=== PATIENT | female | born 1940 | race African-American/Black ===

== ENCOUNTER 2018-01-12 16:50 | Inpatient (IN) | payer OTHER ==
--- NOTE | 2018-01-12 18:26 | PDOC ---
History of Present Illness <Buzz Prieto - Last Filed: 01/12/18 18:26> - General History Source: Patient, Spouse Exam Limitations: No Limitations - History of Present Illness Initial Comments: 01/12/18 20:33 The patient is a 77 year old female who presents to the emergency department s/ p a probable syncopal event. The patient reports that after walking up a hill today she became lightheaded and dizzy. She assumes that she ultimately lost consciousness, because she states that she awoke to find herself seated on the bench next to where she was standing and found her pocketbook on the ground. The patient states she immediately called her and was transported here. The patients last meal was a burger with fries, and 2 glasses of water earlier in the day. She endorses nausea and diaphoresis. Denies vomiting. Of note, she states that she recently required a blood transfusion for internal bleeding and was admitted for 4 days for which she never followed up. She has not seen a doctor since then. The patient notes that she had one episode of passing out at a concert when she was a teenager. PAST MEDICAL HISTORY: Denies history of heart disease or blood clots. PAST SURGICAL HISTORY: no significant history FAMILY HISTORY: no pertinent history MEDICATIONS: reviewed ALLERGIES: As per nursing notes Review of Systems: General: (+) Weakness. No fevers or chills, no weakness, no weight loss HEENT: No change in vision. No sore throat,. No ear pain CardioVascular: No chest pain or shortness of breath Respiratory: No cough, or wheezing. Gastrointestinal: (+) Nausea. vomiting, diarrhea or constipation, No rectal bleeding Genitourinary: No dysuria, hematuria, or frequency Musculoskeletal: No joint or muscle pain or swelling Neurologic: (+) Loss of consciousness. (+) Dizziness. No headache, vertigo Skin: No rashes or easy bruising All other systems reviewed and normal Physical Exam: GENERAL: Obese. The patient is awake, alert, and fully oriented, in no acute distress. HEAD: Normal with no signs of trauma. EYES: Pupils equal, round and reactive to light, extraocular movements intact, sclera anicteric, conjunctiva clear. ABDOMEN: (+) Mild tenderness to palpation of the epigastric area. Soft, nondistended, normal bowel sounds. No guarding. No rebound CARDIOVASCULAR: (+) Soft systolic murmur in left upper chest. No radiation. RESPIRATORY: Lungs clear to auscultation bilaterally. EXTREMITIES: Normal range of motion. LLE: (+) None-pitting edema. (+) Tenderness to palpation of calf and medial aspect of thigh. NEUROLOGICAL: (+) Patient had difficulty recalling her medical history. Her son had to fill in missing information that the patient has appeared to have forgotten. Normal speech, normal gait. PSYCH: Normal mood, normal affect. SKIN: Warm, Dry, normal turgor, no rashes or lesions noted. <Crystal Gonzales - Last Filed: 01/12/18 20:38> - General History Source: Patient, Family Exam Limitations: Dementia - History of Present Illness Initial Comments: 01/12/18 21:20 A portion of this note was documented by scribe services under my direction. I have reviewed the details of the note, within reason, and agree with the documentation. The case summary and management plan written by me. Assessment and plan: This is a 77-year-old female who comes in status post syncope events. Patient has poor recall of her medical history however most of that was filled in by her son. Patient does not have a primary care physician does not follow-up with any physician and does not take any medications. However post working patient up it is apparent that she has hypertension that is uncontrolled and untreated, most likely early type 2 diabetes, some mild renal insufficiency, and anemia. Patient's EKG did show some anterior lateral ischemic changes with flipped T's some of which are old from a prior EKG. Patient will be placed in observation telemetry bed for her syncope and to rule her out for cardiac <Bernadine Azevedo I - Last Filed: 01/12/18 21:23> - General Chief Complaint: Weakness Stated Complaint: WEAKNESS AFTER EATING OUT Time Seen by Provider: 01/12/18 16:56 Past History - Past Medical History COPD: No Other medical history: DENIES - Suicide/Smoking/Psychosocial Hx Smoking History: Never smoked Have you smoked in the past 12 months: No Information on smoking cessation initiated: Yes Hx Alcohol Use: No Drug/Substance Use Hx: No Substance Use Type: None <Buzz Prieto - Last Filed: 01/12/18 18:26> <Crystal Gonzales - Last Filed: 01/12/18 20:38> <Bernadine Azevedo I - Last Filed: 01/12/18 21:23> - Past Medical History Allergies/Adverse Reactions: Allergies Allergy/AdvReac Type Severity Reaction Status Date / Time Penicillins Allergy Intermediate Rash Verified 01/12/18 18:35 aspirin Allergy Unknown Verified 01/12/18 18:34 Home Medications: Ambulatory Orders NK [No Known Home Medication] 01/12/18 *Physical Exam - Vital Signs Last Vital Signs Temp Pulse Resp BP Pulse Ox 98 F 76 20 196/95 98 01/12/18 16:52 01/12/18 18:00 01/12/18 18:00 01/12/18 18:00 01/12/18 18:00 <Buzz Prieto - Last Filed: 01/12/18 18:26> - Vital Signs Last Vital Signs Temp Pulse Resp BP Pulse Ox 98.6 F 79 14 168/90 100 01/12/18 19:33 01/12/18 19:33 01/12/18 19:33 01/12/18 19:33 01/12/18 19:33 <Crystal Gonzales - Last Filed: 01/12/18 20:38> - Vital Signs Last Vital Signs Temp Pulse Resp BP Pulse Ox 98.6 F 79 14 168/90 99 01/12/18 19:33 01/12/18 19:33 01/12/18 19:33 01/12/18 19:33 01/12/18 20:11 <Bernadine Azevedo I - Last Filed: 01/12/18 21:23> ED Treatment Course - LABORATORY CBC & Chemistry Diagram: 01/12/18 18:35 01/12/18 18:35 - ADDITIONAL ORDERS Additional order review: Laboratory Results 01/12/18 01/12/18 01/12/18 18:35 18:35 18:35 PT with INR 11.9 INR 1.06 Sodium 135 L Potassium 4.8 Chloride 99 Carbon Dioxide 26 Anion Gap 10 BUN 30 H Creatinine 1.7 H Creat Clearance w eGFR 29.07 Random Glucose 163 H Calcium 9.1 Total Bilirubin 0.7 AST 29 ALT 9 L Alkaline Phosphatase 62 Troponin I < 0.03 Total Protein 7.6 Albumin 4.1 01/12/18 18:35 RBC 3.87 MCV 80.9 MCHC 32.3 RDW 16.3 H MPV 8.7 Neutrophils % 77.7 Lymphocytes % 12.1 Monocytes % 7.7 Eosinophils % 2.4 Basophils % 0.1 - RADIOLOGY Radiograph Interpretation: 01/12/18 20:[address] was reviewed by Dr. Prieto and over-read by Radiology. Impression: Moderate atrophy. No gross evidence of a focal intracranial lesion or hemorrhage is seen. Correlate clinically to determine further evaluation and follow-up. Chest X-Ray was reviewed by Dr. Prieto and over-read by Radiology. Impression: No acute cardiopulmonary disease is present. <Crystal Gonzales - Last Filed: 01/12/18 20:38> - LABORATORY CBC & Chemistry Diagram: 01/12/18 18:35 01/12/18 18:35 - ADDITIONAL ORDERS Additional order review: Laboratory Results 01/12/18 01/12/18 07 18:35 18:35 18:35 PT with INR 11.9 INR 1.06 Sodium 135 L Potassium 4.8 Chloride 99 Carbon Dioxide 26 Anion Gap 10 BUN 30 H Creatinine 1.7 H Creat Clearance w eGFR 29.07 Random Glucose 163 H Calcium 9.1 Total Bilirubin 0.7 AST 29 ALT 9 L Alkaline Phosphatase 62 Troponin I < 0.03 Total Protein 7.6 Albumin 4.1 01/12/18 18:35 RBC 3.87 MCV 80.9 MCHC 32.3 RDW 16.3 H MPV 8.7 Neutrophils % 77.7 Lymphocytes % 12.1 Monocytes % 7.7 Eosinophils % 2.4 Basophils % 0.1 - RADIOLOGY Radiology Studies Ordered: Category Date Time Status DUPLEX VASCUL US-2LEGS [US] Stat Ultrasound 01/12/18 20:05 Taken - Medications Given in the ED: ED Medications Discontinued Medications Generic Name Dose Route Start Last Admin Trade Name Freq PRN Reason Stop Dose Admin Sodium Chloride 1,000 mls @ 1,000 mls/hr 01/12/18 19:54 01/12/18 19:56 Normal Saline - IV 01/12/18 20:53 1,000 mls/hr .Q1H ONE Administration <Bernadine Azevedo I - Last Filed: 01/12/18 21:23> *DC/Admit/Observation/Transfer <Buzz Prieto - Last Filed: 01/12/18 18:26> - Attestations Scribe Attestion: 01/12/18 20:38 Documentation prepared by Crystal Gonzales, acting as quality engineer medical device for Bernadine Azevedo MD. <Crystal Gonzales - Last Filed: 01/12/18 20:38> - Discharge Dispostion Decision to Admit order: Yes <Bernadine Azevedo I - Last Filed: 01/12/18 21:23> Diagnosis at time of Disposition: Syncope Qualifiers: Syncope type: unspecified Qualified Code(s): R55 - Syncope and collapse Hypertension Qualifiers: Hypertension type: essential hypertension Qualified Code(s): I10 - Essential ( primary) hypertension - Discharge Dispostion Condition at time of disposition: Fair
[2018-01-12 18:49] LABS: WHITE BLOOD COUNT 6.6 K/mm3 (4.0-10.8)
[2018-01-12 18:56] LABS: BASO % 0.1 % (0-2.0); EOS % 2.4 % (0-4.5); HEMATOCRIT 31.3 % (32.4-45.2); HEMOGLOBIN 10.1 GM/dl (10.7-15.3); LYMPH % 12.1 % (8-40); MCH 26.1 pg (25.7-33.7); MCHC 32.3 g/dl (32.0-36.0); MEAN CELL VOLUME 80.9 fl (80-96); MEAN PLT VOLUME 8.7 fl (7.5-11.1); MONO % 7.7 % (3.8-10.2); NEUT % 77.7 % (42.8-82.8); PLATELET COUNT 230 K/MM3 (134-434); RBC 3.87 M/mm3 (3.60-5.2); RDW 16.3 % (11.6-15.6)
[2018-01-12 19:06] LABS: INR 1.06 (0.82-1.09); PROTHROMBIN TIME (PATIENT) 11.9 SEC (10.2-13.0)
[2018-01-12 19:15] LABS: ALBUMIN 4.1 g/dl (3.5-5.0); ALK PHOS 62 U/L (32-92); ANION GAP 10 (8-16); BILIRUBIN,TOTAL 0.7 mg/dl (0.2-1.0); BLOOD UREA NITROGEN 30 mg/dl (7-18); CALCIUM 9.1 mg/dl (8.4-10.2); CHLORIDE 99 mmol/L (98-107); CO2 26 mmol/L (22-28); CREATININE 1.7 mg/dl (0.6-1.3); POTASSIUM 4.8 mmol/L (3.5-5.1); SGOT/AST 29 U/L (10-42); SGPT/ALT 9 U/L (10-40); SODIUM 135 mmol/L (136-145); TOT PROT 7.6 g/dl (6.4-8.3)
[2018-01-12 19:23] LABS: GLUCOSE,RANDOM 163 mg/dl (74-106)
[2018-01-12] MEDS ORDERED: SODIUM CHLORIDE 1,000 ML IV ONE (19:54)
[2018-01-12 23:22] VITALS: BMI 36.7
[2018-01-12] MEDS: HEPARIN NA (PORCINE) 5,000 UNITS/ML 1ML VIAL SQ SCH ×2 (23:29→23:36)
[2018-01-12] MEDS: INSULIN SLIDING SCALE (NOVOLOG) 1 VIAL SQ SCH (23:35)
[2018-01-13] MEDS: INSULIN SLIDING SCALE (NOVOLOG) 1 VIAL SQ SCH ×5 (01:00→22:44)
[2018-01-13] MEDS: HEPARIN NA (PORCINE) 5,000 UNITS/ML 1ML VIAL SQ SCH ×3 (05:56→21:33)
[2018-01-13] MEDS: amLODIPine BESYLATE 5 MG TABLET (FP) PO SCH ×2 (06:50→09:40)
[2018-01-13] MEDS: LISINOPRIL 20 MG TABLET (FP) PO SCH ×3 (06:50→21:33)
--- NOTE | 2018-01-13 08:22 | HP ---
CHIEF COMPLAINT: syncopal episode PCP: none HISTORY OF PRESENT ILLNESS: Patient is a 77 y/o obese female with a past medical history of hypertension (no home medications), hyperlipidemia (no home medications) and lower GI bleed. Patient is a poor historian. Patient reports yesterday she was ambulating yesterday, walking up a hill and loss consciousness. patient denies any chest pain or shortness of breath. Of note, she was admitted to the hospital (pt can not recall the name) last month for a lower GI and received a blood transfusion. Patient has not yet followed up with GI. ER course was notable for: (1)head ct negative for acute pathology (2)b/p 211/101-->pt declined AM medications (3)ekg:nsr t wave inversion anterior later leads, no prior ekg available to compare (4) hgb 10.1 (5) doppler of lower extremities no evidence of DVT Recent Travel: none PAST MEDICAL HISTORY: see hpi PAST SURGICAL HISTORY: none as per patient Social History: retired, resides at home with Smoking: none Alcohol:none Drugs: none Family History: none as per patient Allergies Penicillins Allergy (Intermediate, Verified 01/12/18 18:35) Rash aspirin Allergy (Unknown, Verified 01/12/18 18:34) HOME MEDICATIONS: Home Medications Medication Instructions Recorded NK [No Known Home Medication] 01/12/18 REVIEW OF SYSTEMS CONSTITUTIONAL: Absent: fever, chills, diaphoresis, generalized weakness, malaise, loss of appetite, weight change HEENT: Absent: rhinorrhea, nasal congestion, throat pain, throat swelling, difficulty swallowing, mouth swelling, ear pain, eye pain, visual changes CARDIOVASCULAR: Present: syncope Absent: chest pain, palpitations, irregular heart rate, lightheadedness, peripheral edema RESPIRATORY: Absent: cough, shortness of breath, dyspnea with exertion, orthopnea, wheezing, stridor, hemoptysis GASTROINTESTINAL: Absent: abdominal pain, abdominal distension, nausea, vomiting, diarrhea, constipation, melena, hematochezia GENITOURINARY: Absent: dysuria, frequency, urgency, hesitancy, hematuria, flank pain, genital pain MUSCULOSKELETAL: Absent: myalgia, arthralgia, joint swelling, back pain, neck pain SKIN: Absent: rash, itching, pallor HEMATOLOGIC/IMMUNOLOGIC: Absent: easy bleeding, easy bruising, lymphadenopathy, frequent infections ENDOCRINE: Absent: unexplained weight gain, unexplained weight loss, heat intolerance, cold intolerance NEUROLOGIC: Absent: headache, focal weakness or paresthesias, dizziness, unsteady gait, seizure, mental status changes, bladder or bowel incontinence PSYCHIATRIC: Absent: anxiety, depression, suicidal or homicidal ideation, hallucinations. PHYSICAL EXAMINATION Vital Signs - 24 hr 01/12/18 01/12/18 01/12/18 16:52 18:00 18:28 Temperature 98 F Pulse Rate 82 Pulse Rate [ Apical] Pulse Rate [ 76 Right Radial] Respiratory 20 20 Rate Blood Pressure 164/74 Blood Pressure [Left Arm] Blood Pressure 196/95 190/88 [Right Arm] O2 Sat by Pulse 98 98 Oximetry (%) 01/12/18 01/12/18 01/12/18 19:33 20:11 22:16 Temperature 98.6 F 98.5 F Pulse Rate 78 Pulse Rate [ 79 Apical] Pulse Rate [ Right Radial] Respiratory 14 20 Rate Blood Pressure 184/83 Blood Pressure 168/90 [Left Arm] Blood Pressure [Right Arm] O2 Sat by Pulse 100 99 99 Oximetry (%) 01/12/18 01/13/18 01/13/18 23:40 05:00 06:54 Temperature 98.4 F Pulse Rate 74 Pulse Rate [ Apical] Pulse Rate [ Right Radial] Respiratory 20 20 20 Rate Blood Pressure 211/101 Blood Pressure [Left Arm] Blood Pressure [Right Arm] O2 Sat by Pulse 99 99 Oximetry (%) GENERAL:obese, Awake, alert, and fully oriented, in no acute distress. HEAD: Normal with no signs of trauma. EYES: Pupils equal, round and reactive to light, extraocular movements intact, sclera anicteric, conjunctiva clear. No lid lag. EARS, NOSE, THROAT: Ears normal, nares patent, oropharynx clear without exudates. Moist mucous membranes, ppor dentition NECK: Normal range of motion, supple without lymphadenopathy, JVD, or masses. LUNGS: Breath sounds equal, clear to auscultation bilaterally. No wheezes, and no crackles. No accessory muscle use. HEART: Regular rate and rhythm, normal S1 and S2, 2/6 systolic murmur, no rub or gallop. ABDOMEN: Soft, nontender, not distended, normoactive bowel sounds, no guarding, no rebound, no masses. No hepatomegaly or splenomegaly. MUSCULOSKELETAL: Normal range of motion at all joints. No bony deformities or tenderness. No CVA tenderness. UPPER EXTREMITIES: 2+ pulses, warm, well-perfused. No cyanosis. No clubbing. No peripheral edema. LOWER EXTREMITIES: 2+ pulses, warm, well-perfused. No calf tenderness. trace peripheral edema. NEUROLOGICAL: Cranial nerves II-XII intact. Normal speech. Normal gait. PSYCHIATRIC: Cooperative. Good eye contact. Appropriate mood and affect. SKIN: Warm, dry, normal turgor, no rashes or lesions noted, normal capillary refill. Laboratory Results - last 24 hr 01/12/18 01/12/18 01/12/18 18:35 18:35 18:35 WBC 6.6 RBC 3.87 Hgb 10.1 L Hct 31.3 L MCV 80.9 MCH 26.1 MCHC 32.3 RDW 16.3 H Plt Count 230 MPV 8.7 Absolute Neuts (auto) 5.1 Neutrophils % 77.7 Lymphocytes % 12.1 Monocytes % 7.7 Eosinophils % 2.4 Basophils % 0.1 PT with INR 11.9 INR 1.06 Sodium Potassium Chloride Carbon Dioxide Anion Gap BUN Creatinine Creat Clearance w eGFR POC Glucometer Random Glucose Calcium Total Bilirubin AST ALT Alkaline Phosphatase Troponin I < 0.03 Total Protein Albumin 01/12/18 01/12/18 01/13/18 18:35 23:33 00:05 WBC RBC Hgb Hct MCV MCH MCHC RDW Plt Count MPV Absolute Neuts (auto) Neutrophils % Lymphocytes % Monocytes % Eosinophils % Basophils % PT with INR INR Sodium 135 L Potassium 4.8 Chloride 99 Carbon Dioxide 26 Anion Gap 10 BUN 30 H Creatinine 1.7 H Creat Clearance w eGFR 29.07 POC Glucometer 127 Random Glucose 163 H Calcium 9.1 Total Bilirubin 0.7 AST 29 ALT 9 L Alkaline Phosphatase 62 Troponin I Cancelled Total Protein 7.6 Albumin 4.1 01/13/18 01/13/18 01:00 06:47 WBC RBC Hgb Hct MCV MCH MCHC RDW Plt Count MPV Absolute Neuts (auto) Neutrophils % Lymphocytes % Monocytes % Eosinophils % Basophils % PT with INR INR Sodium Potassium Chloride Carbon Dioxide Anion Gap BUN Creatinine Creat Clearance w eGFR POC Glucometer 119 Random Glucose Calcium Total Bilirubin AST ALT Alkaline Phosphatase Troponin I 0.02 Total Protein Albumin ASSESSMENT/PLAN: 1) cardiovascular hypertension - blood pressure 262/103, patient has declined her morning medication, after a lengthy conversation with patient in regards to medication compliance, repeat b /p after morning medication 198/72 will increase norvasc to 10mg qd - murmur noted on exam, pending echo - continuous cardiac monitoring hyperlipidemia - lipid profile noted, will start lipitor 2) endo hyperglycemia - hgb a1c 6.5, will require outpatient follow up - continue fingersticks achs insulin sliding scale 3) heme/onc normocytic anemia - hgb 10.1, no active bleeding noted, pending iron studies and stool guiac - repeat cbc 4) nephrology kalyan - creatine 1.7 upon arrival, likely secondary to hypertensive urgency, creatine is downtrending, close monitoring f/e/n - diabetic/heart healthy diet - replete electrolytes prn ppx - oob - scd dispo:pt requires obsv telemetry admission Hospitalist Screening - Colonoscopy Questionnaire Colonoscopy Questionnaire: Colonoscopy Questionnaire
[2018-01-13 08:37] LABS: ANION GAP 4 (8-16); BLOOD UREA NITROGEN 22 mg/dl (7-18); CALCIUM 8.8 mg/dl (8.4-10.2); CHLORIDE 105 mmol/L (98-107); CHOLESTEROL 225 mg/dl; CO2 26 mmol/L (22-28); CREATININE 1.1 mg/dl (0.6-1.3); GLUCOSE,RANDOM 121 mg/dl (74-106); HDL CHOLESTEROL 36 mg/dl (29-89); MAGNESIUM 2.1 mg/dL (1.8-2.4); PHOSPHOROUS 3.2 mg/dl (2.5-4.6); SODIUM 135 mmol/L (136-145); TRIGLYCERIDES 91 mg/dl (35-160)
--- NOTE | 2018-01-13 09:18 | EKG ---
Test Reason : Blood Pressure : / mmHG Vent. Rate : 073 BPM Atrial Rate : 073 BPM P-R Int : 178 ms QRS Dur : 096 ms QT Int : 396 ms P-R-T Axes : 055 004 100 degrees QTc Int : 436 ms NORMAL SINUS RHYTHM T WAVE ABNORMALITY, CONSIDER ANTEROLATERAL ISCHEMIA NO PREVIOUS ECGS AVAILABLE Confirmed by JONATHAN CHONG, GAYLE ([id number]) on 01/13/2018 9:17:43 AM Referred By: DR REMY Confirmed By:GAYLE CASTILLO MD
[2018-01-13] MEDS ORDERED: amLODIPine BESYLATE 5 MG TABLET (FP) PO ONE (11:31)
--- NOTE | 2018-01-13 14:54 | CON.CARD ---
Consult Consult Specialty:: Cardiology Referred by:: Hospitalist Medicine Reason for Consultation:: Possible syncope, HTN - History of Present Illness Chief Complaint: Possible syncope, HTN History of Present Illness: HISTORY OF PRESENT ILLNESS: Patient is a 77 y/o obese female with a past medical history of hypertension (no home medications), hyperlipidemia (no home medications) and lower GI bleed. Patient is a poor historian. Patient reports yesterday she was walking up a hill, became light-headed, weak, hot and dizzy then and experienced loss of consciousness. Patient denies associated chest pain , shortness of breath, palpitations, orthopnea, PND or LE edema. Of note, she was admitted to the hospital (pt can not recall the name) last month for a lower GI and received a blood transfusion. Patient has not yet followed up with GI. PAST MEDICAL HISTORY: Denies history of heart disease or blood clots. PAST SURGICAL HISTORY: no significant history FAMILY HISTORY: no pertinent history MEDICATIONS: reviewed ALLERGIES: PCN, ASA - History Source History Provided By: Patient Limitations to Obtaining History: No Limitations - Past Medical History ...: No - Alcohol/Substance Use Hx Alcohol Use: No - Smoking History Smoking history: Never smoked Have you smoked in the past 12 months: No Home Medications - Allergies Allergies/Adverse Reactions: Allergies Allergy/AdvReac Type Severity Reaction Status Date / Time Penicillins Allergy Intermediate Rash Verified 01/12/18 18:35 aspirin Allergy Unknown Verified 01/12/18 18:34 - Home Medications Home Medications: Ambulatory Orders NK [No Known Home Medication] 01/12/18 Review of Systems - Review of Systems Constitutional: reports: Weakness Neurological: reports: Dizziness Vital Signs: Vital Signs Temperature 98.5 F 01/13/18 14:44 Pulse Rate 64 01/13/18 14:44 Respiratory Rate 19 01/13/18 14:44 Blood Pressure 122/52 01/13/18 14:44 O2 Sat by Pulse Oximetry (%) 99 01/13/18 14:44 Constitutional: Yes: No Distress, Calm Neck: Yes: Supple Respiratory: Yes: Regular, CTA Bilaterally Gastrointestinal: Yes: Normal Bowel Sounds, Soft Cardiovascular: Yes: Regular Rate and Rhythm JVD: No Carotid Bruit: No Heart Sounds: Yes: S1, S2 Edema: No - Other Data Labs, Other Data: CBC, BMP 01/13/18 07:25 INR, PTT INR 1.06 (0.82-1.09) 01/12/18 18:35 Troponin, BNP 01/12/18 01/13/18 01/13/18 18:35 00:05 01:00 Troponin I < 0.03 Cancelled 0.02 Troponin, BNP 01/12/18 01/13/18 01/13/18 18:35 00:05 01:00 Troponin I < 0.03 Cancelled 0.02 NSR @ 73 anterolateral T wave changes Imaging - Results Chest X-ray: Report Reviewed (NAD) Cat Scan: Report Reviewed (HCT: No bleed or stroke) Ultrasound: Report Reviewed (Vascular U/S: No DVT Carotid U/S: No sig stenosis) Problem List - Problems (1) Hyperlipidemia Code(s): E78.5 - HYPERLIPIDEMIA, UNSPECIFIED Qualifiers: Hyperlipidemia type: pure hypercholesterolemia Qualified Code(s): E78.00 - Pure hypercholesterolemia, unspecified; E78.0 - Pure hypercholesterolemia (2) Hypertension Code(s): I10 - ESSENTIAL (PRIMARY) HYPERTENSION Qualifiers: Hypertension type: essential hypertension Qualified Code(s): I10 - Essential (primary) hypertension (3) Syncope Code(s): R55 - SYNCOPE AND COLLAPSE Qualifiers: Syncope type: heat syncope Encounter type: initial encounter Qualified Code(s): T67.1XXA - Heat syncope, initial encounter (4) Acute kidney injury Code(s): N17.9 - ACUTE KIDNEY FAILURE, UNSPECIFIED Assessment/Plan 1. Possible syncopal episode - suspect vasovagal/hypovolemia 2. HTN/HCVD 3. Hyperlipidemia 4. Acute kidney injury improving 5. Anemia P:1. Continue Norvasc 10 qd, lisinopril 20 bid, Lipitor 20 qd. ASA allergy noted (causes tinnitus) 2. Monitor telemetry to evaluate sustained arrhythmia 3. Echocardiogram to assess ventricular and valve fxn, f/u TSH 4. Emphasized importance of medication compliance, staying well hydrated and abortive manuevers once prodromal sxs have been exerpienced 5. Thank you for consultative opportunity
[2018-01-13 14:58] LABS: BASO % 0.8 % (0-2.0); EOS % 4.3 % (0-4.5); HEMATOCRIT 29.5 % (32.4-45.2); HEMOGLOBIN 9.3 GM/dL (10.7-15.3); LYMPH % 22.3 % (8-40); MCH 25.4 pg (25.7-33.7); MCHC 31.6 g/dl (32.0-36.0); MEAN CELL VOLUME 80.6 fl (80-96); MEAN PLT VOLUME 8.6 fl (7.5-11.1); MONO % 12.6 % (3.8-10.2); PLATELET COUNT 224 K/MM3 (134-434); RBC 3.66 M/mm3 (3.60-5.2); RDW 17.7 % (11.6-15.6); RETICULOCYTES 1.43 % (0.5-1.5); WHITE BLOOD COUNT 4.7 K/mm3 (4.0-10.0)
[2018-01-13] MEDS: ATORVASTATIN CA 20 MG TABLET (FP) PO SCH (21:33)
[2018-01-13] MEDS ORDERED: ATORVASTATIN CA 40 MG TABLET (FP) PO SCH (22:00)
[2018-01-14] MEDS: HEPARIN NA (PORCINE) 5,000 UNITS/ML 1ML VIAL SQ SCH ×3 (06:06→21:51)
[2018-01-14] MEDS: INSULIN SLIDING SCALE (NOVOLOG) 1 VIAL SQ SCH ×3 (06:23→19:29)
--- NOTE | 2018-01-14 06:35 | PN ---
Progress Note (short form) - Note Progress Note: Chief Complaint: Events noted, notes reviewed, denies any chest pain, denies any dyspnea, sinus rhythm is noted History of Present Illness: Seen and examined on telemetry. Events noted, notes reviewed, denies any chest pain, denies any dyspnea, sinus rhythm is noted Medications: Current Medications Amlodipine Besylate (Norvasc -) 10 mg PO DAILY [facility] Atorvastatin Calcium (Lipitor -) 20 mg PO HS [facility] Last Admin: 01/13/18 21:33 Dose: 20 mg Heparin Sodium (Porcine) (Heparin -) 5,000 unit SQ TID [facility] Last Admin: 01/14/18 06:06 Dose: 5,000 unit Insulin Aspart (Novolog Vial Sliding Scale -) 1 vial SQ ACHS [facility]; Protocol Last Admin: 01/14/18 06:23 Dose: Not Given Lisinopril (Prinivil) 20 mg PO BID [facility] Last Admin: 01/13/18 21:33 Dose: 20 mg Review of Systems - Review of Systems Cardiovascular: As noted above Respiratory: denies: Cough or Sputum Production Gastrointestinal: denies: Nausea, Vomiting, Diarrhea, Constipation or Abdominal Discomfort Musculoskeletal: No Symptoms Reported Endocrine: No Symptoms Reported Vital Signs: Last Vital Signs Temp Pulse Resp BP Pulse Ox 98.3 F 70 20 180/76 99 01/14/18 06:00 01/14/18 06:00 01/14/18 06:00 01/14/18 06:00 01/14/18 06:36 Intake & Output 01/11/18 01/12/18 01/13/18 01/14/18 23:59 23:59 23:59 23:59 Intake Total 1250 400 Balance 1250 400 Weight 214 lb 214 lb 214 lb 1 oz Constitutional: No Distress, Calm Neck: Supple Respiratory: CTA Bilaterally Cardiovascular: S1 S2 Regular Rate and Rhythm Grade 1-2/6 MARCELINA Gastrointestinal: Soft Benign Normal Bowel Sounds Ext: No Edema Labs: CBC, BMP 01/13/18 14:30 01/13/18 07:25 Assessment/Plan ASSESSMENT: 1. Possible syncopal episode - suspect vasovagal/hypovolemia, cannot exclude neurocvardiogenic syncope 2. HTN/HCVD, not at goal 3. Hyperlipidemia 4. Acute kidney injury, probable underlying chronic kidney disease 5. Anemia 6. Morbid obesity PLAN: 1. Continue Norvasc 2. Continue Lisinopril but uptitrate dosage as needed and as tolerated 3. Add B-Blockers Toprol XL 4. Continue Lipitor 5. Patient is not ASA allergic, has intolerance (causes tinnitus) 6. Obtain Echocardiography report performed yesterday 7. Emphasized importance of compliance to therapy administration 8. If blood pressure remains stable with above therapy and patient is ambulatory /asymptomatic may be D/C home and to followup in the office in 1-2 week Grace Frost MD
[2018-01-14 08:09] LABS: SERUM IRON SATURATION 25 % (15-55); TOTAL IRON BINDING CAPACITY 267 ug/dL (250-450); UIBC 201 ug/dL (118-369)
[2018-01-14] MEDS: LISINOPRIL 20 MG TABLET (FP) PO SCH ×2 (09:17→21:51)
[2018-01-14] MEDS: amLODIPine BESYLATE 5 MG TABLET (FP) PO SCH (09:17)
[2018-01-14] MEDS ORDERED: hydrALAZINE HCL 10 MG TABLET PO ONE (10:46)
--- NOTE | 2018-01-14 10:52 | PN ---
Progress Note (short form) - Note Progress Note: asymptomatic. deneis CP, SOB, fever,chills, N/V/C/D, MCARTHUR or blurred vision Current Medications Generic Name Dose Route Start Last Admin Trade Name Jyoti PRN Reason Stop Dose Admin Amlodipine Besylate 10 mg 01/14/18 10:00 01/14/18 09:17 Norvasc - PO 10 mg DAILY ENRIQUE Administration Atorvastatin Calcium 20 mg 01/13/18 22:00 01/13/18 21:33 Lipitor - PO 20 mg HS ENRIQUE Administration Heparin Sodium (Porcine) 5,000 unit 01/12/18 22:00 01/14/18 06:06 Heparin - SQ 5,000 unit TID ENRIQUE Administration Insulin Aspart 1 vial 01/12/18 22:00 01/14/18 06:23 Novolog Vial Sliding Scale - SQ Not Given ACHS [facility] Protocol Lisinopril 40 mg 01/14/18 10:00 01/14/18 09:17 Prinivil PO 40 mg BID ENRIQUE Administration Metoprolol Succinate 50 mg 01/14/18 10:00 01/14/18 09:17 Toprol Xl - PO 50 mg DAILY ENRIQUE Administration Last Vital Signs Temp Pulse Resp BP Pulse Ox 98.3 F 72 20 189/80 99 01/14/18 06:00 01/14/18 10:00 01/14/18 07:33 01/14/18 10:00 01/14/18 06:36 General NAD CV S1 S2 RRR +murmur Lungs CTA B/L no wheezing/rales/rhonchi A&P 77yo F [facility] HTN, dyslipidemia and lower GI bleed presented to the ER [facility] LOC and found to have HTN crisis 1. HTN Crisis- BP remains uncontrolled. medications adjusted this AM. lisinopril increased to 40mg BID and started on metoprolol 50mg and norvasc increased to 10mg. currently BP remains above 180. would continue to monitor. currently maxed on lisinopril and norvasc. will start hydralazine 10mg and titrate up as tolerated. cardio on board. echo performed, awaiting read. states she was not taking medications at home 2. Diabetic- A1c 6.5. dietary changes. would hold starting medications at this time. lifestyle changes. would need repeat A1c in 3 months and determine if medications are needed at that time 3. dyslipidemia- statin 4. DVT ppx- hep sq 5. will need to optimize BP prior to d/c home. although improved here needs further titration of medication. stressed importance of medication compliance and physician follow up Visit type - Emergency Visit Emergency Visit: Yes ED Registration Date: 01/12/18 Care time: The patient presented to the Emergency Department on the above date and was hospitalized for further evaluation of their emergent condition. - New Patient This patient is new to me today: Yes Date on this admission: 01/14/18 - Critical Care Critical Care patient: No - Discharge Referral Referred to [facility] Med P.C.: No
[2018-01-14] MEDS: ATORVASTATIN CA 20 MG TABLET (FP) PO SCH (21:50)
[2018-01-15] MEDS: INSULIN SLIDING SCALE (NOVOLOG) 1 VIAL SQ SCH ×2 (00:02→07:51)
--- NOTE | 2018-01-15 07:23 | PN ---
Progress Note (short form) - Note Progress Note: Chief Complaint: Events noted, notes reviewed, denies any chest pain, denies any dyspnea, complained of abdominal discomfort after therapy administration, sinus rhythm is noted History of Present Illness: Seen and examined on telemetry. Events noted, notes reviewed, denies any chest pain, denies any dyspnea, complained of abdominal discomfort after therapy administration, sinus rhythm is noted Echocardiography revealed normal LV and RV size and function, mild MR and TR with RVSP 30-40 mmHg Medications: Current Medications Amlodipine Besylate (Norvasc -) 10 mg PO DAILY [facility] Last Admin: 01/14/18 09:17 Dose: 10 mg Atorvastatin Calcium (Lipitor -) 20 mg PO HS [facility] Last Admin: 01/14/18 21:50 Dose: 20 mg Heparin Sodium (Porcine) (Heparin -) 5,000 unit SQ TID [facility] Last Admin: 01/14/18 21:51 Dose: 5,000 unit Insulin Aspart (Novolog Vial Sliding Scale -) 1 vial SQ ACHS [facility]; Protocol Last Admin: 01/15/18 00:02 Dose: Not Given Lisinopril (Prinivil) 40 mg PO BID [facility] Last Admin: 01/14/18 21:51 Dose: 40 mg Metoprolol Succinate (Toprol Xl -) 50 mg PO DAILY [facility] Last Admin: 01/14/18 09:17 Dose: 50 mg Review of Systems - Review of Systems Cardiovascular: As noted above Respiratory: denies: Cough or Sputum Production Gastrointestinal: denies: Nausea, Vomiting, Diarrhea, Constipation or Abdominal Discomfort Musculoskeletal: No Symptoms Reported Endocrine: No Symptoms Reported Vital Signs: Last Vital Signs Temp Pulse Resp BP Pulse Ox 97.9 F 62 18 183/85 98 01/15/18 06:00 01/15/18 06:00 01/15/18 07:00 01/15/18 06:00 01/15/18 07:00 Intake & Output 01/12/18 01/13/18 01/14/18 01/15/18 23:59 23:59 23:59 23:59 Intake Total 1250 400 Balance 1250 400 Weight 214 lb 214 lb 214 lb 1 oz 214 lb Constitutional: No Distress, Calm Neck: Supple Respiratory: CTA Bilaterally Cardiovascular: S1 S2 Regular Rate and Rhythm Grade 1-2/6 MARCELINA Gastrointestinal: Soft Benign Normal Bowel Sounds Ext: No Edema Labs: CBC, BMP 01/13/18 14:30 07/06/18 07:25 Assessment/Plan ASSESSMENT: 1. Possible syncopal episode - suspect vasovagal/hypovolemia, cannot exclude neurocardiogenic syncope 2. HTN/HCVD, not at goal 3. Hyperlipidemia 4. Acute kidney injury, probable underlying chronic kidney disease 5. Anemia 6. Morbid obesity PLAN: 1. Continue Norvasc 2. Continue Lisinopril 3. Continue Toprol XL and titrate as needed and tolerated 4. Continue Lipitor 5. Patient is not ASA allergic, has intolerance (causes tinnitus) 6. Emphasized importance of compliance to therapy administration 7. If blood pressure remains stable with above therapy and patient is ambulatory /asymptomatic may be D/C home and to followup in the office in 1-2 week Grace Frost MD
[2018-01-15 10:12] VITALS: BP 148/69; PULSE 57; TEMP 98
--- NOTE | 2018-01-15 10:17 | EKG ---
Test Reason : Blood Pressure : / mmHG Vent. Rate : 080 BPM Atrial Rate : 080 BPM P-R Int : 206 ms QRS Dur : 096 ms QT Int : 402 ms P-R-T Axes : 057 001 111 degrees QTc Int : 463 ms NORMAL SINUS RHYTHM ABNORMAL ECG WHEN COMPARED WITH ECG OF 12-JAN-2018 17:17, NO SIGNIFICANT CHANGE WAS FOUND Confirmed by AUDELIA DO MD ([id number]) on 01/15/2018 10:16:34 AM Referred By: Confirmed By:AUDELIA DO MD
[2018-01-15] MEDS: LISINOPRIL 20 MG TABLET (FP) PO SCH (10:33)
[2018-01-15] MEDS: amLODIPine BESYLATE 5 MG TABLET (FP) PO SCH (10:34)
--- NOTE | 2018-01-15 13:54 | DS ---
Physical Exam: SUBJECTIVE: Patient seen and examined, pt denies cp, sob, palpitations,MCARTHUR, dizziness, abdominal pain, N/V/D. OBJECTIVE: Vital Signs Period Temp Pulse Resp BP Sys/[place] Pulse Ox Last 24 Hr 97.7 F-98.1 F 56-62 18-20 128-183/60-85 98-100 PHYSICAL EXAM GENERAL: The patient is awake, alert, and fully oriented, in no acute distress. HEAD: Normal with no signs of trauma. EYES: PERRL, extraocular movements intact, sclera anicteric, conjunctiva clear. ENT: Ears normal, nares patent, oropharynx clear without exudates, moist mucous membranes. NECK: Trachea midline, full range of motion, supple. LUNGS: Breath sounds equal, clear to auscultation bilaterally, no wheezes, no crackles, no accessory muscle use. HEART: Regular rate and rhythm, S1, S2 without murmur, rub or gallop. ABDOMEN: Soft, nontender, nondistended, normoactive bowel sounds, no guarding, no rebound, no hepatosplenomegaly, no masses. EXTREMITIES: 2+ pulses, warm, well-perfused, no edema. NEUROLOGICAL: Cranial nerves II through XII grossly intact. Normal speech, gait not observed. PSYCH: Normal mood, normal affect. SKIN: Warm, dry, normal turgor, no rashes or lesions noted. LABS Laboratory Results - last 24 hr 01/14/18 01/15/18 21:56 06:54 POC Glucometer 109 140 HOSPITAL COURSE: Date of Admission:01/12/18 Date of Discharge: 01/15/18 This is a 77yo F [facility] HTN, dyslipidemia and lower GI bleed presented to the ER with LOC and found to have HTN crisis. Pt has no PMD and was not on any BP pills at home. Pt was evaluated by cardiology, and was started on Norvasc, Lisinopril and BB with BP improvement. Echo done which revealed normal LVF, mild MR and mild TR. Recommend to monitor BP and resume low salt diet and out pt followup. * Diabetic- A1c 6.5., rec consistent carb diet. *Dyslipidemia-Will continue on Statin * Hx of GI bleed - CBC stable Minutes to complete discharge: 40 Discharge Summary Reason For Visit: WEAKNESS AFTER EATING OUT Condition: Fair - Instructions Diet, Activity, Other Instructions: Diabetic, low salt and low cholesterol diet. Monitor Blood pressure at home. Referrals: Grace Frost MD [Staff Physician] - 2 Weeks Gabriel Estrella MD [Staff Physician] - 1 Week Disposition: HOME - Home Medications Comprehensive Discharge Medication List: Ambulatory Orders Amlodipine Besylate [Norvasc -] 10 mg PO DAILY #30 tablet 01/15/18 Atorvastatin Ca [Lipitor] 20 mg PO HS #30 tablet 01/15/18 Lisinopril [Prinivil] 40 mg PO BID #60 tablet 01/15/18 Metoprolol Succinate [Toprol XL -] 50 mg PO DAILY tab.sr.24h 01/15/18 This patient is new to me today: Yes Date on this admission: 01/15/18 Emergency Visit: Yes ED Registration Date: 01/12/18 Care time: The patient presented to the Emergency Department on the above date and was hospitalized for further evaluation of their emergent condition. Critical Care patient: No - Discharge Referral Referred to [facility] Med P.C.: No
== END 2018-01-15 11:40 | disposition home or self-care (01) | DRG 312 ==
LOC: FER 16:50 → FM/S 21:23 → OBSVTOIN 21:23 → UNDOADMOB 22:16 → FM/S 22:16
PROVIDERS: ADMIT Internal Medicine; ATTEND Nurse Practitioner Family
DX: R55 Syncope and collapse (principal); N17.9 Acute kidney failure, unspecified; I16.9 Hypertensive crisis, unspecified; I11.9 Hypertensive heart disease without heart failure; E78.5 Hyperlipidemia, unspecified; D64.9 Anemia, unspecified; E66.01 Morbid (severe) obesity due to excess calories; Z68.36 Body mass index [BMI] 36.0-36.9, adult; E11.9 Type 2 diabetes mellitus without complications; R53.1 Weakness
CPT/HCPCS: 36415; 70450-TC; 71046-TC-FY; 80048; 80053; 80061; 82272; 82962; 83036; 83540; 83550; 83721; 83735; 84100; 84439; 84443; 84484; 85025; 85044; 85610; 93005; 93306-TC; 93880-TC; 93970-TC; 99285-25; J1644; J7030